=== PATIENT | male | born 1960 | race Caucasian/White ===

== ENCOUNTER → 2016-07-29 | Outpatient (CLI) | payer OTHER ==
[~2016-07-29] MED LIST: ALDACTONE25 MG PO; AMBIEN10 MG PO; ASPIRIN EC81 MG PO; AUGMENTIN 875-1 EACH PO; COREG 3.125M3.125 MG PO; COZAAR50 MG PO; CRESTOR10 MG PO; GLUCOTROL XL 5 M5 MG PO; IMDUR ER TAB 3030 MG PO; IPRAT-ALBUT 0.5-3 ML NEB; JANUVIA50 MG PO; LANTUS100 UNIT/1 SC; LASIX20 MG PO; NASONEX17 GM; SYMBICORT 160-1 INHA INH; ZANTAC150 MG PO
[2016-07-29 13:17] LABS: HEMOGLOBIN 18.2 gm/dl (14.0-17.5); RED BLOOD COUNT 5.77 M/UL (4.20-5.50); WHITE BLOOD COUNT 13.9 K/UL (4.5-11.0)
== END ==
LOC: US 12:04
PROVIDERS: Internal Medicine Nephrology
DX: N18.3 Chronic kidney disease, stage 3 (moderate) (principal); J30.89 Other allergic rhinitis; J44.9 Chronic obstructive pulmonary disease, unspecified
CPT/HCPCS: 36415; 71020; 80048; 81001; 82043; 82570; 82785; 83036; 84156; 85027

== ENCOUNTER → 2016-08-20 | Outpatient (CLI) | payer OTHER | LOC: LAB 09:56 | PROVIDERS: Internal Medicine Nephrology | DX: N18.3 Chronic kidney disease, stage 3 (moderate) (principal) | CPT/HCPCS: 36415; 80048; 80074; 86039; 86160; 86225; 86334 ==

== ENCOUNTER → 2020-10-10 | Outpatient (CLI) | payer OTHER ==
[~2020-10-10] MED LIST changes: +ADMELOG SO100 UNIT/1 SC; +ALBUTEROL2.5 MG/3 M INH; +BASAGLAR K100 UNIT/1 SQ; +COREG 12.5MG12.5 MG PO; -COREG 3.125M3.125 MG PO; +COZAAR100 MG PO; -COZAAR50 MG PO; +FLOVENT DISKUS50 MCG; -IPRAT-ALBUT 0.5-3 ML NEB; +IPRATROPIU0.2 MG/1 M INH; +JANUVIA100 MG PO; +LEVAQUIN750 MG PO; +LIDOCAINE PAIN1 EACH TP; +LIPITOR80 MG PO; +MEDROL DOSEPAK 24 MG PO; +NITROSTAT0.4 MG SL; +NORCO 7.5-3251 EACH PO; +NOVOLOG100 UNIT/1 SQ; +OMNICEF 300 MG300 MG PO; +PROAIR DIGIHAL90 MCG INH; +SYMBICORT 16010.2 GM INH; +TYLENOL 325MG325 MG PO; +VITAMIN D210 MCG PO; +ZYVOX600 MG PO
[2020-10-11 10:14] LABS: CREATININE, URINE 38.5 mg/dL (Not Estab.)
== END ==
LOC: LAB 11:18
PROVIDERS: Internal Medicine Cardiovascular Disease; Nurse Practitioner Family
DX: R94.39 Abnormal result of other cardiovascular function study (principal); I20.9 Angina pectoris, unspecified; I50.22 Chronic systolic (congestive) heart failure; I42.0 Dilated cardiomyopathy; I47.2 Ventricular tachycardia; E11.22 Type 2 diabetes mellitus with diabetic chronic kidney disease
CPT/HCPCS: 36415; 71046; 80053; 80061; 82043; 82570; 83036

== ENCOUNTER → 2020-10-12 | Outpatient (CLI) | payer OTHER ==
[2020-10-12 13:49] LABS: HEMOGLOBIN 18.2 gm/dl (14.0-17.5); RED BLOOD COUNT 5.66 M/UL (4.20-5.50); WHITE BLOOD COUNT 12.5 K/UL (4.5-11.0)
== END ==
LOC: CATH 09:16
PROVIDERS: Internal Medicine Cardiovascular Disease
DX: I25.118 Atherosclerotic heart disease of native coronary artery with other forms of angina pectoris (principal); I42.0 Dilated cardiomyopathy; E11.9 Type 2 diabetes mellitus without complications; I11.0 Hypertensive heart disease with heart failure; I50.22 Chronic systolic (congestive) heart failure; I47.2 Ventricular tachycardia; J44.9 Chronic obstructive pulmonary disease, unspecified; F17.210 Nicotine dependence, cigarettes, uncomplicated; E78.5 Hyperlipidemia, unspecified; E66.01 Morbid (severe) obesity due to excess calories; Z68.32 Body mass index [BMI] 32.0-32.9, adult; Z79.82 Long term (current) use of aspirin; Z79.4 Long term (current) use of insulin; Z79.899 Other long term (current) drug therapy
CPT/HCPCS: 80048; 82962; 85025; 93005; 99152; C1769; C1894; J1644; J2250; J7030; Q9965; Q9967

== ENCOUNTER → 2020-11-12 | Outpatient (CLI) | payer OTHER | LOC: KOH-I 11:00 | DX: F17.210 Nicotine dependence, cigarettes, uncomplicated (principal) | CPT/HCPCS: 71271 ==

== ENCOUNTER → 2020-11-20 | Outpatient (CLI) | payer OTHER | LOC: US 11-05 09:30 | DX: R74.8 Abnormal levels of other serum enzymes (principal); K76.0 Fatty (change of) liver, not elsewhere classified; N28.89 Other specified disorders of kidney and ureter | CPT/HCPCS: 76700 ==

== ENCOUNTER → 2021-08-19 | Outpatient (CLI) | payer OTHER ==
[2021-08-20 10:15] LABS: CREATININE, URINE 55.7 mg/dL (Not Estab.)
== END ==
LOC: US 12:05
PROVIDERS: Internal Medicine Nephrology
DX: N18.30 Chronic kidney disease, stage 3 unspecified (principal)
CPT/HCPCS: 36415; 80053; 81001; 82043; 82570; 84156

== ENCOUNTER → 2022-02-17 | Outpatient (CLI) | payer OTHER | LOC: EXRD 08:26 | DX: K76.0 Fatty (change of) liver, not elsewhere classified (principal) | CPT/HCPCS: 76700 ==